=== PATIENT | male | born 1940 | race Caucasian/White ===

== ENCOUNTER 2017-01-26 17:22 | Emergency (ER) | payer MEDICARE, BC ==
[2017-01-26 17:50] VITALS: BP 137/72
[2017-01-26] MEDS ORDERED: Sulfamethoxazole/Trimethoprim 800-160 MG Tab ONE (18:00)
[2017-01-26] MEDS ORDERED: Phenazopyridine 100 MG Tab ONE (18:00)
[2017-01-26] MEDS ORDERED: cefTRIAXone 2 GM Vial ONE (18:30)
[2017-01-26] MEDS ORDERED: Lidocaine 1% 20 ML MDV ONE (18:34)
--- NOTE | 2017-01-26 18:46 | EDM.PDOC ---
ED HPI GENERAL MEDICAL PROBLEM - General Chief Complaint: Genitourinary Problem Time Seen by Provider: 01/26/17 17:45 Source of Information: Reports: Patient History Limitations: Reports: No Limitations - History of Present Illness INITIAL COMMENTS - FREE TEXT/NARRATIVE: This is a 76yo M with fevers and chills yesterday but resolved this am. He states he has had dysuria and urinary frequency for the past 1-2 days. Denies prior urinary issues but does take flomax. 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 Patient denies any fever today, no chills or other symptoms except urinary frequency, and dysuria and came in only because his stated he needed antibiotics (she is a nurse). Patient states he is eating well, and has no other health concerns or symptoms. Onset: Sudden Duration: Day(s):, Improving Location: Reports: Pelvis Severity: Mild Improves with: Reports: None Worsens with: Reports: None Treatments [employer]: Reports: Acetaminophen Generalized Pain Score (Numeric/FACES): 3 - Related Data Allergies Allergy/AdvReac Type Severity Reaction Status Date / Time warfarin [From Coumadin] Allergy Rash Verified 01/26/17 18:11 Home Meds: Home Meds . [Unable to Verify Home Med List] 01/26/17 [History] Past Medical History Cardiovascular History: Reports: Blood Clots/VTE/DVT, High Cholesterol, Hypertension Genitourinary History: Reports: BPH Musculoskeletal History: Reports: Fracture, Osteoarthritis Dermatologic History: Reports: Other (See Below) Other Dermatologic History: T-cell lymphoma - Past Surgical History HEENT Surgical History: Reports: Tonsillectomy Cardiovascular Surgical History: Reports: Coronary Artery Stent GI Surgical History: Reports: Cholecystectomy Musculoskeletal Surgical History: Reports: Knee Replacement Social & Family History - Family History Family Medical History: Noncontributory - Tobacco Use Smoking Status *Q: Never Smoker - Recreational Drug Use Recreational Drug Use: No ED ROS GENERAL - Review of Systems Review Of Systems: ROS reveals no pertinent complaints other than HPI. ED EXAM, RENAL/ - Physical Exam Exam: See Below Exam Limited By: No Limitations General Appearance: Alert, WD/WN, No Apparent Distress Eye Exam: Bilateral Eye: EOMI Ears: Normal External Exam Nose: Normal Inspection Throat/Mouth: Normal Inspection Head: Atraumatic, Normocephalic Neck: Normal Inspection Respiratory/Chest: No Respiratory Distress, Lungs Clear Cardiovascular: Normal Peripheral Pulses, Regular Rate, Rhythm GI/Abdominal: Normal Bowel Sounds, Soft, Non-Tender Extremities: Normal Inspection Neurological: Alert, Oriented Psychiatric: Normal Affect, Normal Mood Skin Exam: Warm, Dry, Intact Course - Vital Signs Last Recorded V/S: Last Vital Signs Temp 37.1 C 01/26/17 18:12 Pulse 80 01/26/17 18:12 Resp 18 01/26/17 18:12 BP 137/72 01/26/17 18:12 Pulse Ox 96 01/26/17 18:12 - Orders/Labs/Meds Orders: Active Orders 24 hr Category Date Time Status CULTURE URINE [RM] Stat Lab 01/26/17 18:08 Uncollected Labs: Laboratory Tests 01/26/17 01/26/17 Range/Units 17:45 17:46 WBC 17.0 H (4.0-11.0) K/uL RBC 5.36 (4.50-6.50) M/uL Hgb 14.7 (13.0-18.0) g/dL Hct 43.5 (40.0-54.0) % MCV 81 (76-96) fL MCH 27.4 (27.0-32.0) pg MCHC 33.8 (31.0-35.0) g/dL RDW 15.7 (11.0-16.0) % Plt Count 93 L (150-400) K/uL MPV 12.5 H (6.0-10.0) fL Neut % (Auto) 83.6 H (45.0-70.0) % Lymph % (Auto) 6.7 L (20.0-40.0) % [place] % (Auto) 9.4 (3.0-10.0) % Eos % (Auto) 0.2 L (1.0-5.0) % Baso % (Auto) 0.1 (0.0-0.5) % Neut # (Auto) 14.22 H (2.00-7.50) K/uL Lymph # (Auto) 1.13 L (1.50-4.00) K/uL [place] # (Auto) 1.60 H (0.20-0.80) K/uL Eos # (Auto) 0.03 L (0.04-0.40) K/uL Baso # (Auto) 0.01 L (0.02-0.10) K/uL Urine Color Red Urine Appearance Slightly cloudy (CLEAR) Urine pH 5.5 (5.0-8.0) Ur Specific Nora 1.020 (1.003-1.030) Urine Protein 100 H (NEGATIVE) mg/dL Urine Glucose (UA) Negative (NEGATIVE) mg/dL Urine Ketones Negative (NEGATIVE) mg/dL Urine Occult Blood Large H (NEGATIVE) Urine Nitrite Negative (NEGATIVE) Urine Bilirubin Small H (NEGATIVE) Urine Urobilinogen 1.0 (0.2-1.0) E.U./dL Ur Leukocyte Esterase Small H (NEGATIVE) Urine RBC Packed H /HPF Urine WBC Packed H /HPF Urine WBC Clumps Few /HPF Ur Squamous Epith Cells Occasional /HPF Urine Bacteria Many H /HPF Meds: Medications Discontinued Medications Generic Name Dose Route Start Last Admin Trade Name Freq PRN Reason Stop Dose Admin Ceftriaxone Sodium Confirm 01/26/17 18:30 Rocephin Administered 01/26/17 18:31 Dose 2 gm .ROUTE .STK-MED ONE Lidocaine HCl Confirm 01/26/17 18:34 Xylocaine 1% Administered 01/26/17 18:35 Dose 20 ml .ROUTE .STK-MED ONE Departure - Departure Time of Disposition: 18:55 Disposition: Home, Self-Care 01 Condition: good Clinical Impression: UTI, Urinary tract infectious disease - Discharge Information Instructions: Phenazopyridine tablets, Urinary Tract Infection, Adult, Easy-to- Read, Sulfamethoxazole; Trimethoprim, SMX-TMP tablets Referrals: PCP,None [Primary Care Provider] - Forms: ED Department Discharge Additional Instructions: We did do a urine culture and blood cultures, which will take 3 days to grow out. Gave Rocephin 2gm IM in the ER. Take antibiotics as prescribed-Bactrim 1 tab orally twice a day for 10 days. May take Pyridium three times a day for your urinary symptoms. Follow up right away if you start to feel worse-fever, chills, nausea/vomiting, or increased urinary symptoms. - Problem List Review Problem List Initiated/Reviewed/Updated: Yes - My Orders Last 24 Hours: My Active Orders 01/26/17 18:08 CULTURE URINE [RM] Stat - Assessment/Plan Last 24 Hours: My Active Orders 01/26/17 18:08 CULTURE URINE [RM] Stat Plan: Counseled on plan of care with patient. Patient agrees on very close monitoring for any symptoms or vital changes. He will receive Rocephin 2g x1 IM and Bactrim for an extended course of 10 days. Pyridium prescribed. Counseled on side effects and use of medications and close f/u for any developing symptoms or worsening dysuria or hematuria. Discussed abnormal WBC at 17 and patient understands the risks and treatment plan and agrees with plan of care and close follow up in ER here or to return home and see his PCP or go to the ER there if symptoms return. Patient counseled on calling for any questions 27/03 and to start medications immediately. Blood cultures done after discussion with patient on benefits prior to Rocephin administration. Urine culture done as well. Patient to be called when results are obtained. F/u as directed and with PCP as routine.
== END 2017-01-26 19:07 | disposition home or self-care (01) ==
LOC: LB.ED 17:22
DX: N39.0 Urinary tract infection, site not specified (principal); I10 Essential (primary) hypertension; E78.00 Pure hypercholesterolemia, unspecified; M19.90 Unspecified osteoarthritis, unspecified site; Z88.8 Allergy status to other drugs, medicaments and biological substances; Z90.49 Acquired absence of other specified parts of digestive tract; Z98.890 Other specified postprocedural states
CPT/HCPCS: 36415; 81001; 85025; 87040; 87086; 87088; 87186; 96372; 99283; A9270; J0696